=== PATIENT | male | born 1955 | race Caucasian/White ===

== ENCOUNTER → 2017-10-27 | Outpatient (CLI) | payer MEDICARE, BC ==
--- NOTE | 2017-10-27 14:46 | MR ---
EXAMINATION TYPE: MR brain wo/w con DATE OF EXAM: 10/27/2017 COMPARISON: NONE HISTORY: Congenital malformation of peripheral vasculature, Follow up for Stroke. Gadavist 7.5 TECHNIQUE: Multiplanar, multisequence images of the brain and brainstem is performed without and with IV contras t, utilizing 7.5 mL intravenous Gadavist . FINDINGS: Diffusion weighted images demonstrate no evidence of a recent infarct or other diffusion ab normality. There is no extra-axial fluid collection. Multifocal periventricular and subcortical foci of T2/FLAIR hyperintensity are present that do not demonstrate enhancement. These are also identifie d within the left midbrain and abdirizak compatible with scoliosis from prior injury. A prominent perivasc ular space/Virchow Rios space is seen within the right insular cortex. The ventricular system and cisternal spaces are normal in size and appearance. The brain volume is age appropriate. There is an area of T1 and T2/flair hypointensity with curvilinear central T2 hyperintensity likely r elated to vasculature within the right thalamus extending cranially to the periventricular white blanquita er demonstrating a central vessel suggestive of a developmental venous anomaly with surrounding calci fications. This could be confirmed with CT. Midline structures demonstrate normal morphology. There is an incidentally noted 4 mm nonenhancing pi jolanta cyst. The craniocervical junction appears within normal limits. Post contrast images demonstrat e no abnormal enhancement other than the above mentioned possible developmental venous anomaly. The d ural venous sinuses appear patent. The globes are intact. Mild mucosal thickening is seen within the right maxillary sinus and minimal within the ethmoid sinuses. Remaining visualized paranasal sinuses and mastoid air cells are well aerated. Major intracranial flow voids are maintained. IMPRESSION: 1. There is no evidence of acute territorial infarct, midline shift or restricted diffusion. 2. 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 CT could be performed to confirm peripheral calcifications. 3. Other than the above-mentioned probable developmental venous anomaly there is no evidence for jennifer tional intracranial enhancing mass or abnormal intracranial enhancement. 4. Mild burden nonspecific white matter change of the supratentorium and within the abdirizak and midbrain . 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
== END | disposition home or self-care (01) ==
LOC: RADMRIMAIN 12:25
PROVIDERS: ATTEND Psychiatry & Neurology Neurology
DX: R90.82 White matter disease, unspecified (principal)
CPT/HCPCS: 82565; 70553; A9581

== ENCOUNTER → 2019-04-03 | Outpatient (CLI) | payer MEDICARE, BC ==
--- NOTE | 2019-04-03 13:57 | CT ---
EXAMINATION TYPE: CT pelvis wo con DATE OF EXAM: 04/03/2019 COMPARISON: None. HISTORY: Right sided SI joint pain into thigh and buttocks severe for 3 years with occasional leg kinga n per patient. SI joint recurrent pain and dysfunction per order. CT DLP: 463 mGycm Automated exposure control for dose reduction was used. FINDINGS: Sacroiliac joints are symmetric about within normal limits. No suspicious sclerosis, spurring, or asy mmetric narrowing is present bilaterally. Posterior interpedicular rods and screws transfix L4-S1 levels bilaterally with artificial disc mater ial at these levels. Alignment is satisfactory. Spinal canal is preserved. There is symmetric mild to moderate axial joint space loss in both hips with mild acetabular spurring . No suspicious bowel dilatation. No concerning fluid collection or adenopathy. Entire pelvis is not in cluded in field of view which does not include the majority of prostate gland and hip joints. IMPRESSION: Fairly unremarkable study.
== END | disposition home or self-care (01) ==
LOC: RADCTMAIN 12:56
PROVIDERS: ATTEND Psychiatry & Neurology Neurology
DX: M53.3 Sacrococcygeal disorders, not elsewhere classified (principal)
CPT/HCPCS: 72192

== ENCOUNTER 2020-05-27 00:44 | Emergency (ER) | payer MEDICARE, BC ==
[2020-05-27 01:03] VITALS: RESP 18
--- NOTE | 2020-05-27 01:28 | ED ---
General Adult HPI - General Chief complaint: ENT Stated complaint: Trouble urinating, headache, confusion Time Seen by Provider: 05/27/20 01:06 Source: patient, family Mode of arrival: wheelchair Limitations: no limitations - History of Present Illness Initial comments: 64-year-old male presents to the emergency room for several complaints. Patient reports that he had a bad tooth for 2 years. States that in April he had this tooth removed. He states that shortly afterward he started to feel as if there is something in his throat. Patient states he has dysphasia from a previous stroke. However he felt like there was phlegm in his throat and he could not cough it up. He says primary care provider who diagnosed him with coronavirus although his test was negative. Patient then went to Dr. Delacruz, ENT physician who did a scope of his throat and sinus inflammation and put him on a steroid. He also thought the tooth may be draining and causing irritation to start him on clindamycin. Patient reports that he has also had trouble u rinating for several months. States that he goes frequently and a small amount.He has not had any fevers. Patient reports that he also has episodes throughout the day where he says he confused and then this resolves. States he wants to take his clothes off and then he feels better. He is wondering if his tooth infection could've done this although his infection has resolved after the antibiotic. Patient has no other complaints at this time including shortness of breath, chest pain, abdominal pain, nausea or vomiting, headache, or visual changes. - Related Data Allergies Allergy/AdvReac Type Severity Reaction Status Date / Time No Known Allergies Allergy Verified 05/27/20 01:03 Review of Systems ROS Statement: Those systems with pertinent positive or pertinent negative responses have been documented in the HPI. ROS Other: All systems not noted in ROS Statement are negative. Past Medical History Past Medical History: Hypertension, Neurologic Disorder Additional Past Medical History / Comment(s): hemorrhagic stroke 11/2015 History of Any Multi-Drug Resistant Organisms: None Reported Past Surgical History: Back Surgery, Cholecystectomy, Hernia Repair, Tonsillectomy Past Psychological History: No Psychological Hx Reported Smoking Status: Former smoker Past Alcohol Use History: Occasional Past Drug Use History: None Reported General Exam Limitations: no limitations General appearance: alert, in no apparent distress Head exam: Present: atraumatic, normocephalic, normal inspection Eye exam: Present: normal appearance, PERRL, EOMI. Absent: scleral icterus, conjunctival injection ENT exam: Present: normal exam, normal oropharynx, mucous membranes moist, other (Right upper tooth extraction noted without purulent drainage or erythema or abscess. No evidence of infection.) Neck exam: Present: normal inspection, full ROM. Absent: tenderness Respiratory exam: Present: normal lung sounds bilaterally. Absent: respiratory distress, wheezes Cardiovascular Exam: Present: regular rate, normal rhythm, normal heart sounds GI/Abdominal exam: Present: soft, normal bowel sounds. Absent: distended, tenderness, guarding, rebound, rigid Neurological exam: Present: alert, oriented X3, normal gait (Patient has weakness of the left leg which is chronic From previous stroke) Course Vital Signs 05/27/20 00:51 Temperature 98.4 F Pulse Rate 72 Respiratory 18 Rate Blood Pressure 147/75 O2 Sat by Pulse 95 Oximetry Medical Decision Making - Medical Decision Making Vitals are stable. Patient is well-appearing. CBC is unremarkable. CMP did show evidence of dehydration with a BUN to creatinine ratio of 37. Urinalysis is unremarkable. Postvoid residual was 43. No retention. Patient was given a liter of fluids for dehydration which could be contributing to some of his leg symptoms. Of note patient was also taken off of Cymbalta the month his symptoms started. He was apparently on this for quite some time. I did discuss that this could be continued bleeding to some of his symptoms and he'll follow-up with primary care. If Patient feels any worsening symptoms he will return to the emergency room. - Lab Data Result diagrams: 05/27/20 01:34 05/27/20 01:34 Lab Results 05/27/20 05/27/20 05/27/20 Range/Units 01:34 01:34 01:34 WBC 10.2 (3.8-10.6) k/uL RBC 4.65 (4.30-5.90) m/uL Hgb 14.7 (13.0-17.5) gm/dL Hct 43.1 (39.0-53.0) % MCV 92.7 (80.0-100.0) fL MCH 31.6 (25.0-35.0) pg MCHC 34.1 (31.0-37.0) g/dL RDW 12.4 (11.5-15.5) % Plt Count 232 (150-450) k/uL MPV 7.9 Neutrophils % 59 % Lymphocytes % 26 % Monocytes % 6 % Eosinophils % 6 % Basophils % 1 % Neutrophils # 6.0 (1.3-7.7) k/uL Lymphocytes # 2.7 (1.0-4.8) k/uL Monocytes # 0.6 (0-1.0) k/uL Eosinophils # 0.6 (0-0.7) k/uL Basophils # 0.1 (0-0.2) k/uL Sodium 134 L (137-145) mmol/L Potassium 5.1 (3.5-5.1) mmol/L Chloride 102 (98-107) mmol/L Carbon Dioxide 24 (22-30) mmol/L Anion Gap 8 mmol/L BUN 32 H (9-20) mg/dL Creatinine 0.85 (0.66-1.25) mg/dL Est GFR (CKD-EPI)AfAm >90 (>60 ml/min/1.73 sqM) Est GFR (CKD-EPI)NonAf >90 (>60 ml/min/1.73 sqM) Glucose 128 H (74-99) mg/dL Calcium 9.3 (8.4-10.2) mg/dL Total Bilirubin 0.6 (0.2-1.3) mg/dL AST 20 (17-59) U/L ALT 14 (4-49) U/L Alkaline Phosphatase 56 (38-126) U/L Total Protein 7.4 (6.3-8.2) g/dL Albumin 4.5 (3.5-5.0) g/dL Urine Color Yellow Urine Appearance Clear (Clear) Urine pH 5.5 (5.0-8.0) Ur Specific [place] 1.021 (1.001-1.035) Urine Protein Negative (Negative) Urine Glucose (UA) Negative (Negative) Urine Ketones Negative (Negative) Urine Blood Negative (Negative) Urine Nitrite Negative (Negative) Urine Bilirubin Negative (Negative) Urine Urobilinogen <2.0 (<2.0) mg/dL Ur Leukocyte Esterase Negative (Negative) Disposition Clinical Impression: Dehydration Disposition: HOME SELF-CARE Condition: Good Instructions (If sedation given, give patient instructions): Dehydration (ED) Additional Instructions: Please drink plenty of fluids. Please talk to your doctor about your medication changes. If you have any worsening symptoms return to the emergency room. Is patient prescribed a controlled substance at d/c from ED?: No Referrals: Bryson Hutson MD [Primary Care Provider] - 1-2 days Time of Disposition: 02:37
[2020-05-27 01:54] LABS: Basophils # (A) 0.1 k/uL (0-0.2); Basophils % (A) 1 %; Eosinophils # (A) 0.6 k/uL (0-0.7); Eosinophils % (A) 6 %; HCT 43.1 % (39.0-53.0); HGB 14.7 gm/dL (13.0-17.5); Lymphocytes # (A) 2.7 k/uL (1.0-4.8); Lymphocytes % (A) 26 %; MCH 31.6 pg (25.0-35.0); MCHC 34.1 g/dL (31.0-37.0); MCV 92.7 fL (80.0-100.0); Mean Platelet Volume 7.9; Monocytes # (A) 0.6 k/uL (0-1.0); Monocytes % (A) 6 %; Neutrophils % (A) 59 %; Platelet Count 232 k/uL (150-450); RBC 4.65 m/uL (4.30-5.90); RDW 12.4 % (11.5-15.5); WBC 10.2 k/uL (3.8-10.6)
[2020-05-27 02:02] LABS: Appearance,Urine Clear (Clear); Bilirubin,Urine Negative (Negative); Blood,Urine Negative (Negative); Color,Urine Yellow; Glucose,Urine (UA) Negative (Negative); Ketones,Urine Negative (Negative); Leukocyte Esterase,Urine Negative (Negative); Nitrite,Urine Negative (Negative); PH, Urine 5.5 (5.0-8.0); Protein,Urine Negative (Negative); Specific Gravity,Urine 1.021 (1.001-1.035); Urobilinogen,Urine <2.0 mg/dL (<2.0)
[2020-05-27 02:06] LABS: ALT 14 U/L (4-49); AST 20 U/L (17-59); African American GFR (CKD) >90 (>60 ml/min/1.73 sqM); Albumin 4.5 g/dL (3.5-5.0); Alkaline Phosphatase 56 U/L (38-126); Anion Gap 8 mmol/L; Blood Urea Nitrogen 32 mg/dL (9-20); Calcium 9.3 mg/dL (8.4-10.2); Carbon Dioxide 24 mmol/L (22-30); Chloride 102 mmol/L (98-107); Glucose 128 mg/dL (74-99); Non-African American GFR(CKD) >90 (>60 ml/min/1.73 sqM); Sodium 134 mmol/L (137-145); Total Bilirubin 0.6 mg/dL (0.2-1.3); Total Protein 7.4 g/dL (6.3-8.2)
[2020-05-27 02:19] LABS: Potassium 5.1 mmol/L (3.5-5.1)
[2020-05-27] MEDS ORDERED: SODIUM CHLORIDE 0.9% 1,000 ML IV STA (02:21)
[2020-05-27 03:23] VITALS: BP 138/65; PULSE 68; TEMP 97.9
== END 2020-05-27 03:20 | disposition home or self-care (01) ==
LOC: EC 00:44
DX: E86.0 Dehydration (principal); I10 Essential (primary) hypertension; Z87.891 Personal history of nicotine dependence
CPT/HCPCS: 36415; 80053; 81003; 85025; 96360; 99284

== ENCOUNTER 2021-03-11 10:24 | Day surgery (SDC) | payer MEDICARE ==
[2021-03-09 10:41] VITALS: BMI 26.4
--- NOTE | 2021-03-11 07:37 | P.GSHP ---
History of Present Illness H&P Date: 03/11/21 CHIEF COMPLAINT: Colon screen HISTORY OF PRESENT ILLNESS: The patient is a 65-year-old male who presents for colon screen. Lower endoscopy was offered for further evaluation and management. PAST MEDICAL HISTORY: Please see list. PAST SURGICAL HISTORY: Please see list. MEDICATIONS: Please see list. ALLERGIES: Please see list. SOCIAL HISTORY: No illicit drug use FAMILY HISTORY: No reports of Crohn disease or ulcerative colitis. REVIEW OF ORGAN SYSTEMS: CONSTITUTIONAL: No reports of fevers or chills. PHYSICAL EXAM: VITAL SIGNS: Stable GENERAL: Well-developed pleasant in no acute distress. HEENT: No scleral icterus. Extraocular movements grossly intact. Moist buccal mucosa. NECK: Supple without lymphadenopathy. CHEST: Unlabored respirations. Equal bilateral excursions. CARDIOVASCULAR: Regular rate and rhythm. Distal 2+ pulses. ABDOMEN: Soft, nontender, nondistended. MUSCULOSKELETAL: No clubbing, cyanosis, or edema. ASSESSMENT: 1. Colon screen. PLAN: 1. Recommend proceeding with a lower endoscopy Past Medical History Past Medical History: CVA/TIA, Diabetes Mellitus, Hypertension, Neurologic Disorder Additional Past Medical History / Comment(s): hemorrhagic stroke 11/2015-left sided weakness & some paralysis although doesn't use any assistive device per pt., used to take meds for diabetes-no longer needed, frequent sinus drainage from stroke History of Any Multi-Drug Resistant Organisms: None Reported Past Surgical History: Back Surgery, Cholecystectomy, Hernia Repair, Tonsillectomy Additional Past Surgical History / Comment(s): cervical fusion, lumbar fusion Past Anesthesia/Blood Transfusion Reactions: No Reported Reaction Smoking Status: Former smoker - Past Family History Mother Family Medical History: No Reported History Medications and Allergies Home Medications Medication Instructions Recorded Confirmed Type DULoxetine HCL [Cymbalta] 30 mg PO DAILY 03/09/21 03/09/21 History Gabapentin [Neurontin] 800 mg PO BID 03/09/21 03/09/21 History Ipratropium [place] 0.06%Nasal 2 spray EA NOSTRIL Q6H PRN 03/09/21 03/09/21 History [Atrovent Nasal 0.06%] Morphine Sulfate ER [Ms Contin] 30 mg PO 0300,1500 03/09/21 03/09/21 History amLODIPine BESYLATE 5 mg PO HS 03/09/21 03/09/21 History lisinopriL [Zestril] 20 mg PO HS 03/09/21 03/09/21 History Allergies Allergy/AdvReac Type Severity Reaction Status Date / Time No Known Allergies Allergy Verified 03/09/21 10:35
[~2021-03-11 10:24] MED LIST: LACTATED RINGERS 1,000 ML IV SCH; LIDOCAINE 1% (10MG/ML) FOR IV START INTRADERMA PRN
[2021-03-11 10:49] VITALS: RESP 16; TEMP 97.5
[2021-03-11 11:00] LABS: Glucose,Whole Blood 131 mg/dL (75-99)
[2021-03-11] MEDS ORDERED: PROPOFOL 10 MG/ML 20 ML VIAL IV ONE (11:42)
[2021-03-11 12:10] VITALS: BP 105/69
[2021-03-11 12:30] VITALS: PULSE 55
--- NOTE | 2021-03-11 12:35 | P.PCN ---
Date of Procedure: 03/11/21 Description of Procedure: PREOPERATIVE DIAGNOSIS: Personal history of colon polyps Colonoscopy screening POSTOPERATIVE DIAGNOSIS: Personal history of colon polyps Colonoscopy screening Tubular adenoma ascending colon OPERATION: Colonoscopy to the ileocecal valve and appendiceal orifice, cecum Colonoscopy with hot snare polypectomy SURGEON: Krissy Diaz MD. ANESTHESIA: MAC. INDICATIONS: The patient is an 65-year-old male who presents personal history of colon polyps. Last colonoscopy over 10 years. Benefits and risks were described and informed consent was obtained. DESCRIPTION OF PROCEDURE: The patient had undergone Sutab prep. The patient had been brought into the operating room and laid in the left lateral decubitus position. After adequate intravenous sedation, the rectum was examined with 2% lidocaine jelly. The prostate was unremarkable. External hemorrhoids were encountered. The rectal tone was within normal limits. No lesions were palpated in the rectal vault. An Olympus colonoscope was advanced until the cecum, ileocecal valve and appendiceal orifice were clearly viewed. The prep was fair. No sigmoid diverticulosis was encountered. Colonic polyps were found and removed. No evidence of focal colitis was found. Retroflexion of the scope demonstrated grade 1 internal hemorrhoids without active bleeding or inflammation. The colon was desufflated. The patient had tolerated the procedure well. Withdrawal time was over 6 minutes. FINDINGS: Aronchick preparation quality scale 3 (1-5) Internal hemorrhoids, grade 1 External hemorrhoids, grade 1. No arteriovenous malformations. Sigmoid diverticulosis Removal of 1 polyps: - Snare polypectomy ascending colon, 8 mm flat villous adenoma polyp. No focal colitis. RECOMMENDATIONS: Repeat colonoscopy in 3 years, 2023 Plan - Discharge Summary Discharge Rx Participant: No New Discharge Prescriptions: Continue Morphine Sulfate ER [Ms Contin] 30 mg PO 0300,1500 Ipratropium [place] 0.06%Nasal [Atrovent Nasal 0.06%] 2 spray EA NOSTRIL Q6H PRN PRN Reason: Nasal Congestion DULoxetine HCL [Cymbalta] 30 mg PO DAILY lisinopriL [Zestril] 20 mg PO HS Gabapentin [Neurontin] 800 mg PO BID amLODIPine BESYLATE 5 mg PO HS Discharge Medication List DULoxetine HCL [Cymbalta] 30 mg PO DAILY 03/09/21 [History] Gabapentin [Neurontin] 800 mg PO BID 03/09/21 [History] Ipratropium [place] 0.06%Nasal [Atrovent Nasal 0.06%] 2 spray EA NOSTRIL Q6H PRN 03/09/21 [History] Morphine Sulfate ER [Ms Contin] 30 mg PO 0300,1500 03/09/21 [History] amLODIPine BESYLATE 5 mg PO HS 03/09/21 [History] lisinopriL [Zestril] 20 mg PO HS 03/09/21 [History] Follow up Appointment(s)/Referral(s): Krissy Diaz MD [STAFF PHYSICIAN] - As Needed Patient Instructions/Handouts: Colorectal Polyps (DC) Activity/Diet/Wound Care/Special Instructions: Repeat colonoscopy in 3 years, 2023 Discharge Disposition: HOME SELF-CARE
== END 2021-03-11 12:50 | disposition home or self-care (01) ==
LOC: ORWHC2ENDO 10:24
PROVIDERS: ATTEND Surgery Plastic and Reconstructive Surgery
DX: Z12.11 Encounter for screening for malignant neoplasm of colon (principal); K64.8 Other hemorrhoids; K64.4 Residual hemorrhoidal skin tags; Z86.010 Personal history of colon polyps
CPT/HCPCS: 45385; J2704; 88305

== ENCOUNTER 2021-07-16 14:53 | Emergency (ER) | payer MEDICARE ==
[2021-07-16 15:20] VITALS: BP 134/95; PULSE 75; RESP 16; TEMP 98.4
[2021-07-16] MEDS ORDERED: SODIUM CHLORIDE 0.9% 500 ML 500 ML IV STA (15:51)
[2021-07-16] MEDS ORDERED: MORPHINE SULFATE 4 MG/ML SYRINGE IVP STA (15:51)
--- NOTE | 2021-07-16 15:58 | ED ---
General Adult HPI - General Source: patient, family, RN notes reviewed, old records reviewed Mode of arrival: ambulatory Limitations: no limitations - History of Present Illness -: days(s) (4) Location: mouth (tooth 30) Radiation: other (face) Severity scale (1-10): 8 Quality: constant Consistency: constant Improves with: none Worsens with: other (jaw movements) Associated Symptoms: malaise Treatments Prior to Arrival: other (tylenol and amoxicillin, dentist did panorax) <Rolf Riggs - Last Filed: 07/16/21 21:27> <Simona Anderson - Last Filed: 07/18/21 22:47> - General Chief complaint: Recheck/Abnormal Lab/Rx Stated complaint: Oral issues Time Seen by Provider: 07/16/21 15:40 - History of Present Illness Initial comments: 66-year-old male, alert and oriented 4, non-toxic appearing, presents with family member complaining of right lower jaw pain. Patient had a tooth extraction and bone graft done at the dentist on Tuesday and states tooth was infected at that time. He was put on amoxicillin however symptoms of swelling and pain have gotten worse. He did return to the dentist today and they did a Panorex and suggested that the patient come to the emergency room for evaluation. Patient denies any fevers. No nausea vomiting or diarrhea. No chest pain or difficulty breathing. He has been taking Tylenol with no relief. He states that it is painful to open his jaw. He has lateral neck tenderness and pain does radiate into the right side of his face. (Rolf Riggs) - Related Data Home Medications Medication Instructions Recorded Confirmed DULoxetine HCL [Cymbalta] 30 mg PO DAILY 03/09/21 03/11/21 Gabapentin [Neurontin] 800 mg PO BID 03/09/21 03/11/21 Ipratropium [place] 0.06%Nasal 2 spray EA NOSTRIL Q6H PRN 03/09/21 03/11/21 [Atrovent Nasal 0.06%] Morphine Sulfate ER [Ms Contin] 30 mg PO 0300,1500 03/09/21 03/11/21 amLODIPine BESYLATE 5 mg PO HS 03/09/21 03/11/21 lisinopriL [Zestril] 20 mg PO HS 03/09/21 03/11/21 Allergies Allergy/AdvReac Type Severity Reaction Status Date / Time No Known Allergies Allergy Verified 03/11/21 10:38 Review of Systems ROS Other: All systems not noted in ROS Statement are negative. <Rolf Riggs - Last Filed: 07/16/21 21:27> ROS Other: All systems not noted in ROS Statement are negative. <Simona Anderson Deidre - Last Filed: 07/18/21 22:47> ROS Statement: Those systems with pertinent positive or pertinent negative responses have been documented in the HPI. Past Medical History Past Medical History: CVA/TIA, Diabetes Mellitus, Hypertension, Neurologic Disorder Additional Past Medical History / Comment(s): hemorrhagic stroke 11/2015-left sided weakness & some paralysis although doesn't use any assistive device per pt., used to take meds for diabetes-no longer needed, frequent sinus drainage from stroke History of Any Multi-Drug Resistant Organisms: None Reported Past Surgical History: Back Surgery, Cholecystectomy, Hernia Repair, Tonsil lectomy Additional Past Surgical History / Comment(s): cervical fusion, lumbar fusion Past Anesthesia/Blood Transfusion Reactions: No Reported Reaction Past Psychological History: No Psychological Hx Reported Smoking Status: Former smoker Past Alcohol Use History: None Reported Past Drug Use History: None Reported - Past Family History Mother Family Medical History: No Reported History <Rolf Riggs - Last Filed: 07/16/21 21:27> General Exam Limitations: no limitations General appearance: alert, in no apparent distress Head exam: Present: atraumatic, normocephalic Eye exam: Present: normal appearance. Absent: scleral icterus, conjunctival injection ENT exam: Present: mucous membranes moist, other (Exudate and erythema noted around tooth #20 extraction site) Neck exam: Present: tenderness, full ROM, lymphadenopathy (Submandibular anterior cervical lymphadenopathy). Absent: meningismus Respiratory exam: Present: normal lung sounds bilaterally. Absent: respiratory distress, wheezes, rales, rhonchi, stridor, accessory muscle use Cardiovascular Exam: Present: regular rate, normal rhythm. Absent: JVD Back exam: Present: normal inspection. Absent: tenderness, CVA tenderness (R), CVA tenderness (L), rash noted Neurological exam: Present: alert, oriented X3 Psychiatric exam: Present: normal affect, normal mood Skin exam: Present: warm, dry, intact, normal color. Absent: cyanosis, diaphoretic <Rolf Riggs - Last Filed: 07/16/21 21:27> Course Vital Signs 07/16/21 15:18 Temperature 98.4 F Pulse Rate 75 Respiratory 16 Rate Blood Pressure 134/95 O2 Sat by Pulse 96 Oximetry Medical Decision Making - Lab Data Result diagrams: 07/16/21 16:15 07/16/21 16:15 <Rolf Riggs - Last Filed: 07/16/21 21:27> - Lab Data Result diagrams: 07/16/21 16:15 07/16/21 16:15 <Simona Anderson - Last Filed: 07/18/21 22:47> - Medical Decision Making 66-year-old male presents with right lower jaw pain after tooth extraction and bone graft done at the dentist on Tuesday. He is taking amoxicillin nand was seen by his dentist today. Patient denies any fevers, nausea vomiting or diarrhea. No chest pain or difficulty breathing. . CT facial bones shows no evidence of abscess or acute abnormality. No abnormal fluid collection or drainage abscess. Labs show no evidence of leukocytosis. He is afebrile. Upon physical exam there is no evidence of erythema or oral abscess. Patient instructed to continue his antibiotics prescribed by his dentist and follow up with dentist next week return to the emergency room with any new or concerning symptoms. Patient is agreeable to this plan of care. Case discussed with Dr. Anderson (Rolf Riggs) I was available for consultation in the emergency department. The history and physical exam were done by the midlevel provider. I was consulted for this patients care. I reviewed the case with the midlevel provider and based on their presentation of the patient, I agree with the assessment, medical decision making and plan of care as documented. Chart was dictated using [employer] dictation software. Attempts were made to correct any dictation errors however some typographical errors may persist. (Simona Anderson) - Lab Data Lab Results 07/16/21 07/16/21 07/16/21 Range/Units 16:15 16:15 16:15 WBC 8.0 (3.8-10.6) k/uL RBC 4.88 (4.30-5.90) m/uL Hgb 15.2 (13.0-17.5) gm/dL Hct 45.0 (39.0-53.0) % MCV 92.3 (80.0-100.0) fL MCH 31.3 (25.0-35.0) pg MCHC 33.9 (31.0-37.0) g/dL RDW 12.1 (11.5-15.5) % Plt Count 237 (150-450) k/uL MPV 7.9 Neutrophils % 64 % Lymphocytes % 25 % Monocytes % 5 % Eosinophils % 3 % Basophils % 1 % Neutrophils # 5.1 (1.3-7.7) k/uL Lymphocytes # 2.0 (1.0-4.8) k/uL Monocytes # 0.4 (0-1.0) k/uL Eosinophils # 0.2 (0-0.7) k/uL Basophils # 0.1 (0-0.2) k/uL Sodium 137 (137-145) mmol/L Potassium 4.4 (3.5-5.1) mmol/L Chloride 105 (98-107) mmol/L Carbon Dioxide 23 (22-30) mmol/L Anion Gap 9 mmol/L BUN 25 H (9-20) mg/dL Creatinine 0.62 L (0.66-1.25) mg/dL Est GFR (CKD-EPI)AfAm >90 (>60 ml/min/1.73 sqM) Est GFR (CKD-EPI)NonAf >90 (>60 ml/min/1.73 sqM) Glucose 188 H (74-99) mg/dL Plasma Lactic Acid Paras 1.4 (0.7-2.0) mmol/L Calcium 9.2 (8.4-10.2) mg/dL Total Bilirubin 0.6 (0.2-1.3) mg/dL AST 19 (17-59) U/L ALT 12 (4-49) U/L Alkaline Phosphatase 64 (38-126) U/L Total Protein 7.3 (6.3-8.2) g/dL Albumin 4.3 (3.5-5.0) g/dL Disposition Is patient prescribed a controlled substance at d/c from ED?: No Time of Disposition: 18:23 <Rolf Riggs - Last Filed: 07/16/21 21:27> <Simona Anderson - Last Filed: 07/18/21 22:47> Clinical Impression: Pain, dental Disposition: HOME SELF-CARE Condition: Good Instructions (If sedation given, give patient instructions): Acute Dental Trauma (ED) Additional Instructions: Continue the antibiotics prescribed by your dentist. Follow-up with the dentist next week. Return to the emergency room with any new or concerning symptoms including increased pain, redness, fevers, persistent nausea and vomiting or difficulty swallowing. Referrals: Bryson Hutson MD [Primary Care Provider] - 1-2 days
[2021-07-16 16:50] LABS: Basophils # (A) 0.1 k/uL (0-0.2); Basophils % (A) 1 %; Eosinophils # (A) 0.2 k/uL (0-0.7); Eosinophils % (A) 3 %; HGB 15.2 gm/dL (13.0-17.5); Lymphocytes % (A) 25 %; MCH 31.3 pg (25.0-35.0); MCHC 33.9 g/dL (31.0-37.0); MCV 92.3 fL (80.0-100.0); Mean Platelet Volume 7.9; Monocytes # (A) 0.4 k/uL (0-1.0); Monocytes % (A) 5 %; Neutrophils # (A) 5.1 k/uL (1.3-7.7); Neutrophils % (A) 64 %; Platelet Count 237 k/uL (150-450); RBC 4.88 m/uL (4.30-5.90); RDW 12.1 % (11.5-15.5)
[2021-07-16 16:59] LABS: ALT 12 U/L (4-49); AST 19 U/L (17-59); African American GFR (CKD) >90 (>60 ml/min/1.73 sqM); Albumin 4.3 g/dL (3.5-5.0); Alkaline Phosphatase 64 U/L (38-126); Anion Gap 9 mmol/L; Blood Urea Nitrogen 25 mg/dL (9-20); Calcium 9.2 mg/dL (8.4-10.2); Carbon Dioxide 23 mmol/L (22-30); Chloride 105 mmol/L (98-107); Glucose 188 mg/dL (74-99); Non-African American GFR(CKD) >90 (>60 ml/min/1.73 sqM); Potassium 4.4 mmol/L (3.5-5.1); Sodium 137 mmol/L (137-145); Total Bilirubin 0.6 mg/dL (0.2-1.3); Total Protein 7.3 g/dL (6.3-8.2)
--- NOTE | 2021-07-16 18:11 | CT ---
EXAMINATION TYPE: CT facial bones w con CT DLP: 591.9 mGycm, Automated exposure control for dose reduction was used. DATE OF EXAM: 07/16/2021 5:57 PM COMPARISON: None. CLINICAL INDICATION:Male, 66 years old with history of abscess, RT side abscess, recent bone graft. TECHNIQUE: Multiple unenhanced axial CT images were obtained of the facial bones soft tissue and bone windows. Coronal, axial and sagittal reformatted images were also provided in soft tissue and bone windows and submitted for interpretation. FINDINGS: No evidence of organizing fluid collection. There is mucous retention cyst within the right maxillary sinus. Partially visualized fixation hardware in the lower cervical spine. Multilevel degenerative d isc disease changes of the spine. There is no evidence of fracture, subluxation, dislocation, or sign ificant soft tissue swelling. The orbital contents are unremarkable.The temporal-mandibular joints ap pear symmetric. The visualized portions of the globes are unremarkable. IMPRESSION: No evidence of abscess or acute abnormality.
== END 2021-07-16 18:37 | disposition home or self-care (01) ==
LOC: EC 14:53
DX: K08.89 Other specified disorders of teeth and supporting structures (principal); E11.9 Type 2 diabetes mellitus without complications; I10 Essential (primary) hypertension; Z87.891 Personal history of nicotine dependence; Z79.899 Other long term (current) drug therapy
CPT/HCPCS: 36415; 80053; 83605; 85025; 87040; 70487; 99284; 96374; J2270; Q9967

== ENCOUNTER 2024-11-07 07:23 | Day surgery (SDC) | payer MEDICARE ==
[2024-11-07 07:44] VITALS: TEMP 97.7
[2024-11-07] MEDS: LACTATED RINGERS 1,000 ML IV SCH (07:58)
[2024-11-07] MEDS: IV FLUID CONTINUATION 1,000 ML IV ONE (07:59)
[2024-11-07 08:00] LABS: Glucose,Whole Blood 142 mg/dL (70-110)
--- NOTE | 2024-11-07 08:10 | P.GSHP ---
History of Present Illness H&P Date: 11/07/24 CHIEF COMPLAINT: Dysphagia and colon screen HISTORY OF PRESENT ILLNESS: The patient is a 69-year-old male who presents with dysphagia, gastroesophageal reflux disease and need for colon screen. Upper and lower endoscopy were offered for further evaluation and management. PAST MEDICAL HISTORY: Please see list. PAST SURGICAL HISTORY: Please see list. MEDICATIONS: Please see list. ALLERGIES: Please see list. SOCIAL HISTORY: No illicit drug use FAMILY HISTORY: No reports of Crohn disease or ulcerative colitis. REVIEW OF ORGAN SYSTEMS: CONSTITUTIONAL: No reports of fevers or chills. GI: Denies any blood in stools or constipation. PHYSICAL EXAM: VITAL SIGNS: Stable GENERAL: Well-developed pleasant in no acute distress. HEENT: No scleral icterus. Extraocular movements grossly intact. Moist buccal mucosa. NECK: Supple without lymphadenopathy. CHEST: Unlabored respirations. Equal bilateral excursions. CARDIOVASCULAR: Regular rate and rhythm. Distal 2+ pulses. ABDOMEN: Soft, nondistended. MUSCULOSKELETAL: No clubbing, cyanosis, or edema. ASSESSMENT: 1. Dysphagia and gastroesophageal reflux disease 2. Colon screen. PLAN: 1. Recommend proceeding with an upper and lower endoscopy Past Medical History Past Medical History: CVA/TIA, Diabetes Mellitus, Hypertension, Neurologic Disorder, Osteoarthritis (OA) Additional Past Medical History / Comment(s): hemorrhagic stroke 11/2015-left sided weakness & some paralysis although doesn't use any assistive device per pt., frequent sinus drainage from stroke, hx. colon polyps, fell on right shoulder-will f/u w/surgeon soon about possible surgery History of Any Multi-Drug Resistant Organisms: None Reported Past Surgical History: Back Surgery, Cholecystectomy, Hernia Repair, Tonsillectomy Additional Past Surgical History / Comment(s): cervical fusion, lumbar fusion, colonoscopies Past Anesthesia/Blood Transfusion Reactions: No Reported Reaction Smoking Status: Former smoker - Past Family History Mother Family Medical History: No Reported History Medications and Allergies Home Medications Medication Instructions Recorded Confirmed Type Gabapentin [Neurontin] 800 mg PO DAILY 03/09/21 11/07/24 History Ipratropium [place] 0.06%Nasal 2 spray EA NOSTRIL Q6H PRN 03/09/21 11/07/24 History [Atrovent Nasal 0.06%] amLODIPine BESYLATE 5 mg PO HS 03/09/21 11/07/24 History lisinopriL [Zestril] 20 mg PO HS 03/09/21 11/07/24 History Fluticasone Nasal [place] [Flonase 2 spray EA NOSTRIL DAILY 11/05/24 11/07/24 History Nasal [place]] HYDROcodone/APAP 5-325MG [[place] 1 tab PO Q6HR PRN 11/05/24 11/07/24 History 5-325] metFORMIN HCL [Glucophage] 500 mg PO BID 11/05/24 11/07/24 History Allergies Allergy/AdvReac Type Severity Reaction Status Date / Time No Known Allergies Allergy Verified 11/07/24 07:39 Surgical - Exam Vital Signs Temp Pulse Resp BP Pulse Ox 97.7 F 74 18 138/92 97 11/07/24 07:40 11/07/24 07:40 11/07/24 07:40 11/07/24 07:40 11/07/24 07:40 Results - Labs Abnormal Lab Results - Last 24 Hours (Table) 11/07/24 Range/Units 07:54 POC Glucose (mg/dL) 142 H (70-110) mg/dL
[2024-11-07] MEDS ORDERED: LIDOCAINE 1% INJ 10MG/ML (20 ML MDV) ONE (08:13)
[2024-11-07] MEDS ORDERED: PROPOFOL 10 MG/ML 20 ML VIAL IV ONE (08:13)
--- NOTE | 2024-11-07 08:32 | P.PCN ---
Date of Procedure: 11/07/24 Description of Procedure: PREOPERATIVE DIAGNOSIS: Dysphagia POSTOPERATIVE DIAGNOSIS: Upper esophageal stenosis Gastritis OPERATION: Esophagogastroduodenoscopy with rigid dilator over the guidewire 57 Fr with dilation Esophagogastroduodenoscopy with cold forceps biopsies stomach/antrum, esophagus, duodenum SURGEON: Krissy Diaz MD ANESTHESIA: MAC. INDICATIONS: The patient is a 69-year-old male who presents with dysphagia. Benefits and risks of the procedure were described. Informed consent was obtained. DESCRIPTION: The patient was brought into the endoscopy suite and laid in the left lateral decubitus position. After a timeout was confirmed, the procedure was initiated. An Olympus gastroscope was passed into the posterior oropharynx where an upper esophageal stenosis was identified. The scope was passed down to the distal esophagus. To address the upper esophageal stenosis, rigid dilator over guidewire was selected. Next using an Hungarian rigid dilator, a guidewire was placed through the gastroscope. Next the scope was withdrawn. A 57-Korean rigid Hungarian dilator was passed carefully along the posterior oropharynx to 45 cm and left in place for 2-3 minutes stretch. The dilator was withdrawn including the guidewire. The scope was reentered along the posterior oropharynx with no findings of full- thickness tear of the upper esophageal sphincter. Additional findings below. Within the stomach, severe acute gastritis with gastric ulcerations were identified along the body of the stomach with cold forceps biopsies obtained. The lower esophageal valve was evaluated with Hill grade 2 lower esophageal valve. LA grade B erosive esophagitis was identified. Biopsies were obtained of the esophagus including duodenum. No full-thickness injury was encountered. The GI tract was desufflated. The patient tolerated the procedure well. FINDINGS: Upper esophageal stenosis dilated 57-Korean rigid dilator Diaphragmatic hiatus at 39 cm from the incisors Squamocolumnar junction 39 cm from the incisors. Gastritis along the gastric body and fundus cold forceps biopsies obtained Duodenum with biopsies obtained LA grade B erosive esophagitis, biopsies obtained Hill grade 2 lower esophageal valve. RECOMMENDATIONS: Omeprazole 40 mg daily Upper endoscopy as needed with dilation
--- NOTE | 2024-11-07 08:47 | P.PCN ---
Date of Procedure: 11/07/24 Description of Procedure: PREOPERATIVE DIAGNOSIS: Personal history of colon polyps Colonoscopy screening POSTOPERATIVE DIAGNOSIS: Tubular adenoma transverse colon Internal hemorrhoids, grade 2 OPERATION: Colonoscopy to the ileocecal valve and appendiceal orifice, cecum Colonoscopy with cold forceps biopsy SURGEON: Krissy Diaz MD. ANESTHESIA: MAC. INDICATIONS: The patient is an 69-year-old male who presents personal history of colon polyps. Last colonoscopy 5 years. Benefits and risks were described and informed consent was obtained. DESCRIPTION OF PROCEDURE: The patient had undergone Suprep. The patient had been brought into the operating room and laid in the left lateral decubitus position. After adequate intravenous sedation, the rectum was examined with 2% lidocaine jelly. The prostate was unremarkable. External hemorrhoids were encountered. The rectal tone was within normal limits. No lesions were palpated in the rectal vault. An Olympus colonoscope was advanced until the cecum, ileocecal valve and appendiceal orifice were clearly viewed. The prep was fair. No large sigmoid diverticulosis was encountered. Colonic polyps were found and removed. No evidence of focal colitis was found. Retroflexion of the scope demonstrated grade 2 internal hemorrhoids without active bleeding or inflammation. The colon was desufflated. The patient had tolerated the procedure well. Withdrawal time was over 6 minutes. FINDINGS: Aronchick preparation quality scale 3 (1-5) Internal hemorrhoids, grade 2 External hemorrhoids, grade 2 No arteriovenous malformations. No large sigmoid diverticulosis Removal of 1 polyps: - Cold forceps biopsy at proximal transverse colon, 4 mm adenoma No focal colitis. RECOMMENDATIONS: Repeat colonoscopy 3 years, 2027 Plan - Discharge Summary Discharge Rx Participant: No New Discharge Prescriptions: New Omeprazole [PriLOSEC] 40 mg PO DAILY #14 cap Continue HYDROcodone/APAP 5-325MG [[place] 5-325] 1 tab PO Q6HR PRN PRN Reason: Pain Fluticasone Nasal [place] [Flonase Nasal [place]] 2 spray EA NOSTRIL DAILY metFORMIN HCL [Glucophage] 500 mg PO BID Ipratropium [place] 0.06%Nasal [Atrovent Nasal 0.06%] 2 spray EA NOSTRIL Q6H PRN PRN Reason: Nasal Congestion lisinopriL [Zestril] 20 mg PO HS Gabapentin [Neurontin] 800 mg PO DAILY amLODIPine BESYLATE 5 mg PO HS Discharge Medication List Gabapentin [Neurontin] 800 mg PO DAILY 11/22/21 [History] Ipratropium [place] 0.06%Nasal [Atrovent Nasal 0.06%] 2 spray EA NOSTRIL Q6H PRN 03/09/21 [History] amLODIPine BESYLATE 5 mg PO HS 03/09/21 [History] lisinopriL [Zestril] 20 mg PO HS 03/09/21 [History] Fluticasone Nasal [place] [Flonase Nasal [place]] 2 spray EA NOSTRIL DAILY 11/05/24 [History] HYDROcodone/APAP 5-325MG [[place] 5-325] 1 tab PO Q6HR PRN 11/05/24 [History] metFORMIN HCL [Glucophage] 500 mg PO BID 11/05/24 [History] Omeprazole [PriLOSEC] 40 mg PO DAILY #14 cap 11/07/24 [Rx] Follow up Appointment(s)/Referral(s): Krissy Diaz MD [STAFF PHYSICIAN] - 12/04/24 10:00 am Patient Instructions/Handouts: Esophageal Dilation (DC), Colorectal Polyps (GEN) Activity/Diet/Wound Care/Special Instructions: Repeat colonoscopy 3 years, 2027 Discharge Disposition: HOME SELF-CARE
[2024-11-07 09:06] VITALS: BP 103/68; PULSE 70; RESP 16
== END 2024-11-07 09:32 | disposition home or self-care (01) ==
LOC: ORWHC2ENDO 07:23
PROVIDERS: ATTEND Surgery Plastic and Reconstructive Surgery
DX: Z12.11 Encounter for screening for malignant neoplasm of colon (principal); D12.3 Benign neoplasm of transverse colon; K29.50 Unspecified chronic gastritis without bleeding; K31.89 Other diseases of stomach and duodenum; K64.1 Second degree hemorrhoids; K64.4 Residual hemorrhoidal skin tags; K22.2 Esophageal obstruction; M19.90 Unspecified osteoarthritis, unspecified site; K21.9 Gastro-esophageal reflux disease without esophagitis; E11.9 Type 2 diabetes mellitus without complications; I10 Essential (primary) hypertension; Z79.84 Long term (current) use of oral hypoglycemic drugs; Z86.0100 Personal history of colon polyps, unspecified; Z86.73 Personal history of transient ischemic attack (TIA), and cerebral infarction without residual deficits; Z87.891 Personal history of nicotine dependence; Z90.49 Acquired absence of other specified parts of digestive tract; Z90.89 Acquired absence of other organs; Z98.890 Other specified postprocedural states; Z79.899 Other long term (current) drug therapy
CPT/HCPCS: 88305; 45380; 43239; 43248; J2003; J2704